=== PATIENT | female | born 1970 | race Two or more races ===

== ENCOUNTER 2020-01-02 12:11 | Outpatient (CLI) | payer OTHER | END 2020-01-02 15:38 | disposition home or self-care (01) | LOC: SONOGRAMA 12:11 | PROVIDERS: ATTEND Pathology Anatomic Pathology & Clinical Pathology | DX: D34 Benign neoplasm of thyroid gland (principal); E04.8 Other specified nontoxic goiter; E06.5 Other chronic thyroiditis ==